=== PATIENT | female | born 1980 | race African-American/Black ===

== ENCOUNTER 2025-04-17 08:30 | Emergency (ER) | payer BC ==
[2025-04-17] MEDS ORDERED: FAMOTIDINE 20 MG/2 ML VIAL IV ONE (08:38)
[2025-04-17] MEDS ORDERED: ASPIRIN 81 MG CHEWABLE TABLET ONE (08:38)
[2025-04-17 09:38] LABS: Absolute Lymphocytes (CBC) 1.4 K/uL (0.7-4.9); Hematocrit 38.1 % (36.0-45.0); Hemoglobin 12.8 g/dL (12.0-15.0); MCH 29.6 pg (27.0-35.0); MCHC 33.7 g/dL (32.0-36.0); MCV 87.9 fL (80-100); MPV 9.6 fL (7.6-11.3); Nucleated RBC Absolute Count 0.0 (0-0); Nucleated Red Blood Cells % 0.1 % (0-0); RBC Red Blood Cell Count 4.33 M/uL (3.86-4.86); White Blood Count 6.40 thou/uL (4.3-10.9)
[2025-04-17 09:45] LABS: ALT/SGPT 17 U/L (13-56); AST/SGOT 12 U/L (15-37); Albumin 3.7 g/dL (3.4-5.0); Albumin/Globulin Ratio 0.9 (1.1-1.8); Alkaline Phosphatase 57 U/L (45-117); Anion Gap 10.7 mEq/L (5.0-15.0); BUN Blood Urea Nitrogen 8 mg/dL (7-18); Bilirubin Indirect, Calculated 0.4 mg/dL (0.2-0.8); Globulin 4.3 g/dL (2.3-3.5); Glucose Level 120 mg/dL (74-106); Lipase 31 U/L (13-75); Potassium 3.7 mEq/L (3.5-5.1)
[2025-04-17 09:50] LABS: Troponin High Sensitivity < 3.0 pg/mL (<58.9)
--- NOTE | 2025-04-17 10:02 | RAD REPORT ---
EXAM: Chest Single View HISTORY: 45 years Female CHEST PAIN COMPARISON: No prior exams FINDINGS: LUNGS/PLEURA: The lungs are clear. No pleural effusions or pneumothorax. No pulmonary edema. CARDIAC/MEDIASTINUM: The cardiac silhouette is within normal limits. UPPER ABDOMEN: No significant abnormality. BONES: No acute abnormality. LINES/TUBES/OTHER: N/A IMPRESSION: No evidence of acute cardiopulmonary disease.
--- NOTE | 2025-04-17 10:15 | EDPHYS ---
Physician Documentation [facility] Name: Kimberly Delvalle Age: 45 yrs Sex: Female : 1980 Arrival Date: 04/17/2025 Time: 08:30 Bed 3 Private MD: ED Physician Isabel García HPI: 04/17 10:15 This 45 yrs old Black Female presents to ER via Ambulatory with complaints of Altered sw6 Mental Status, Abdominal Pain, Chest Pain. 08:35 The patient presents with EMS from her job for evaluation for altered mental status. 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 She was unable to provide any information to EMS prior to arrival due to her altered mental status. However upon arrival to the ER she complained she is having chest pain. She reports the chest pain was so bad this is what caused her to not speak. She reports the chest pain has been present since Friday. Today is Friday morning. She has not taken any medications at home for her symptoms. She denies any change in the pain with exertion or deep breathing. Movement of her arm sometimes makes the pain feel worse. No nausea or vomiting. No fevers or chills. No shortness of breath. No cough or congestion. She denies any history of high blood pressure, diabetes or high cholesterol. She does not smoke. She reports has been seen at [facility] on 2 different occasions for this chest pain and no diagnosis has been found. She has not followed up with her PCP for this. No medication given by EMS. Here for evaluation.. 08:38 The patient presents with decreased responsiveness. Onset: The symptoms/episode sw6 began/occurred just prior to arrival. Possible causes: unknown. Current symptoms: In the emergency department the patient's symptoms have resolved, the patient is alert and fully oriented, has normal speech, has normal responsiveness, has no confusion. Patient's baseline: Neuro: alert and fully oriented, Motor: no deficits, Ambulation: walks without assistance, Speech: normal. The patient has not experienced similar symptoms in the past. 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 - Infectious Disease History:: Denies. - Social history:: Smoking status: Patient denies any tobacco usage or history of. ROS: 08:35 Constitutional: Negative for fever, chills, and weight loss, Respiratory: Negative for sw6 shortness of breath, cough, wheezing, and pleuritic chest pain, Abdomen/GI: Negative for abdominal pain, nausea, vomiting, diarrhea, and constipation, 08:35 Cardiovascular: Positive for chest pain, 08:35 All other systems are negative, Exam: 08:35 Constitutional: This is a well developed, well nourished patient who is awake, alert, sw6 and in no acute distress. Head/Face: Normocephalic, atraumatic. Chest/axilla: Normal chest wall appearance and motion. Nontender with no deformity. No lesions are appreciated. Cardiovascular: Regular rate and rhythm with a normal S1 and S2. No gallops, murmurs, or rubs. Normal PMI, no JVD. No pulse deficits. Respiratory: Lungs have equal breath sounds bilaterally, clear to auscultation and percussion. No rales, rhonchi or wheezes noted. No increased work of breathing, no retractions or nasal flaring. Abdomen/GI: Soft, non-tender, with normal bowel sounds. No distension or tympany. No guarding or rebound. No evidence of tenderness throughout. Back: No spinal tenderness. No costovertebral tenderness. Full range of motion. 08:35 ECG was reviewed by the Attending Physician. Vital Signs: 08:30 BP 139 / 86; Pulse 88; Resp 14 S; Temp 98(O); Pulse Ox 100% on R/A; Pain 8/10; aa5 08:50 Weight 70.31 kg (R); Height 5 ft. 2 in. (R); aa5 09:59 BP 125 / 76; Pulse 78; Resp 16 S; Pulse Ox 100% on R/A; aa5 10:19 BP 124 / 78; Pulse 77; Resp 20; Temp 98.4; Pulse Ox 100% ; me1 08:50 Body Mass Index 28.35 (70.31 kg, 157.48 cm) aa5 08:30 Pain Scale: Adult aa5 MDM: 08:34 Medical Screening Exam initiated sw6 08:35 Differential Diagnosis: ACS, musculoskeletal pain, GERD, gastritis, pancreatitis, peptic ulcer disease. Data reviewed: vital signs, nurses notes, EMS record, EKG. 10:13 Data reviewed: lab test result(s), cardiac enzymes, CBC, electrolytes, radiologic studies, plain films. ED course: The patient is doing well from the ER. She is resting comfortably in the examination room and reports her pain has resolved. Her laboratory studies are unremarkable including a normal high-sensitivity troponin. Her chest x-ray shows no acute cardiopulmonary issues. She remained stable here in the ER and is okay for discharge home with PCP follow-up in 1 week. Recommend she follow-up with a cemetery worker in 1 week.. 04/17 08:35 Order name: Basic Metabolic Panel; Complete Time: 10:01 04/17 10:01 Interpretation: Within normal limits: CRE 0.85. 04/17 08:35 Order name: CBC with Diff; Complete Time: 09:47 04/17 09:47 Interpretation: Within normal limits: WBC 6.40; HGB 12.8; HCT 38.1; PLT 210. 04/17 08:35 Order name: Troponin HS; Complete Time: 10:04/17 10:01 Interpretation: Within normal limits: Troponin HS < 3.0. 04/17 08:35 Order name: Lipase; Complete Time: 10:01 04/17 10:02 Interpretation: Within normal limits: LIP 31. 04/17 08:35 Order name: LFT's; Complete Time: 10:01 04/17 10:01 Interpretation: Within normal limits: ALB 3.7. 04/17 08:35 Order name: XRAY Chest (1 view); Complete Time: 10:13 04/17 10:13 Interpretation: No acute disease. 04/17 08:35 Order name: Cardiac monitoring; Complete Time: 08:36 04/17 08:35 Order name: EKG - Nurse/Tech; Complete Time: 08:36 04/17 08:35 Order name: IV Saline Lock; Complete Time: 08:43 04/17 08:35 Order name: Labs collected and sent; Complete Time: 08:43 04/17 08:35 Order name: O2 Per Protocol; Complete Time: 08:36 sw6 04/17 08:35 Order name: O2 Sat Monitoring; Complete Time: 08:36 sw6 EC:35 Rate is 90 beats/min. Rhythm is regular. QRS [place] is Normal. DC interval is normal. QRS sw6 interval is normal. QT interval is normal. No Q waves. T waves are Normal. No ST changes noted. Clinical impression: Normal ECG. Administered Medications: 08:43 Drug: Aspirin PO Chewable Tablet 324 mg PO once; 81 mg tablets x 4 Route: PO; aa5 10:20 Follow up: Response: No adverse reaction me1 08:43 Drug: Famotidine IVP 20 mg IVP once; dilute with 10 mL 0.9% NaCl; give over 2 minutes aa5 Route: IVP; Site: left antecubital; 08:48 Follow up: Response: No adverse reaction aa5 Disposition Summary: 04/17/25 10:15 Discharge Ordered Notes: Location: Home sw6 Problem: chronic sw6 Symptoms: are resolved sw6 Condition: Stable sw6 Diagnosis - Chest pain, unspecified sw6 Followup: sw6 - With: Maikol Obrien MD - When: 5 - 6 days - Reason: Continuance of care Discharge Instructions: - Discharge Summary Sheet sw6 - Nonspecific Chest Pain, Adult sw6 Forms: - Medication Reconciliation Form sw6 - Antibiotic Education sw6 - Prescription Opioid Use sw6 - Patient Portal Instructions sw6 - Leadership Thank You Letter 6 Signatures: Dispatcher [employer] Joann Myrick RN RN aa5 Isabel García MD MD sw6 Becki Anaya RN me1 Corrections: (The following items were deleted from the chart) 08:35 08:35 BASIC METABOLIC PANEL+C.LAB.BRZ ordered. EDMS EDMS 08:35 08:35 CBC+H.LAB.BRZ ordered. EDMS EDMS 08:35 08:35 Troponin High Sensitivity+C.LAB.BRZ ordered. EDMS EDMS 08:35 08:35 LIPASE+C.LAB.BRZ ordered. EDMS EDMS 08:35 08:35 HEPATIC FUNCTION+C.LAB.BRZ ordered. EDMS EDMS 08:35 08:35 Test, Urine+UC.LAB.BRZ ordered. EDMS EDMS 08:35 08:35 Chest Single View+RAD.RAD.BRZ ordered. EDMS EDMS
--- NOTE | 2025-04-17 10:15 | ER ---
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 Upon scene arrival EMS reports pt was following commands, not speaking, and only moaning. Pt c/o epigastric pain radiating up to chest and reports hx of gastric ulcer. 08:30 Coronavirus screen: At this time, the client does not indicate any symptoms associated aa5 with coronavirus-19. Ebola Screen: Patient denies travel to an Ebola-affected area in the 21 days before illness onset. Initial Sepsis Screen: Does the patient meet any 2 criteria? No. Patient's initial sepsis screen is negative. Does the patient have a suspected source of infection? No. Patient's initial sepsis screen is negative. Risk Assessment: Do you want to hurt yourself or someone else? Patient reports no desire to harm self or others. Onset of symptoms was April 17, 2025. 08:30 Acuity: JOSUE 3 aa5 08:30 [facility] 08[facility]30 Care prior to arrival: Glucose check: 116. 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 - Infectious Disease History:: Denies. - Social history:: Smoking status: Patient denies any tobacco usage or history of. Screenin:30 [facility] ED Fall Risk Assessment (Adult) History of falling in the last 3 months, aa5 including since admission No falls in past 3 months (0 pts) Confusion or Disorientation No (0 pts) Intoxicated or Sedated No (0 pts) Impaired Gait No (0 pts) Mobility Assist Device Used No (0 pt) Altered Elimination No (0 pt) Score/Fall Risk Level 0 - 2 = Low Risk Oriented to surroundings, Maintained a safe environment, Educated pt \T\ family on fall prevention, incl call for assistance when getting out of bed, Assessed \T\ reinforced patient's understanding of fall precautions. Abuse screen: Denies threats or abuse. Nutritional screening: No deficits noted. Tuberculosis screening: No symptoms or risk factors identified. Assessment: 08:30 General: Appears uncomfortable, Behavior is calm, cooperative. Pain: Complains of pain aa5 in epigastric area Pain radiates to mid-sternal area Pain currently is 8 out of 10 on a pain scale. Quality of pain is described as sharp, Pain began Friday and gradually getting worse Is intermittent, Noted to be guarding, quiet/stoic. Neuro: Level of Consciousness is awake, alert, obeys commands, Oriented to person, place, time, situation. Cardiovascular: Heart tones S1 S2 present Edema is absent. Rhythm is sinus rhythm. Respiratory: Airway is patent Respiratory effort is even, unlabored, Respiratory pattern is regular, symmetrical, Breath sounds are clear bilaterally. Denies cough, shortness of breath. GI: Abdomen is round non-distended, Bowel sounds present X 4 quads. Abd is soft X 4 quads Patient currently denies diarrhea, nausea, vomiting. : No signs and/or symptoms were reported regarding the genitourinary system. EENT: No signs and/or symptoms were reported regarding the EENT system. Derm: Skin is dry, Skin is normal, Skin temperature is warm. Musculoskeletal: Range of motion: intact in all extremities. Vital Signs: 08:30 BP 139 / 86; Pulse 88; Resp 14 S; Temp 98(O); Pulse Ox 100% on R/A; Pain 8/10; aa5 08:50 Weight 70.31 kg (R); Height 5 ft. 2 in. (R); aa5 09:59 BP 125 / 76; Pulse 78; Resp 16 S; Pulse Ox 100% on R/A; aa5 10:19 BP 124 / 78; Pulse 77; Resp 20; Temp 98.4; Pulse Ox 100% ; me1 08:50 Body Mass Index 28.35 (70.31 kg, 157.48 cm) aa5 08:30 Pain Scale: Adult aa5 ED Course: 08:30 Arm band placed on Patient placed in an exam room, on a stretcher. aa5 08:30 Patient has correct armband on for positive identification. Placed in gown. Bed in low aa5 position. Call light in reach. Side rails up X2. Client placed on continuous cardiac and pulse oximetry monitoring. NIBP monitoring applied. property assessment monitor on. Pulse ox on. NIBP on. 08:33 Patient arrived in ED. jl7 08:34 Isabel García MD is Attending Physician. sw6 08:37 EKG done, by ED staff, reviewed by Isabel García MD. aa5 08:40 Initial lab(s) drawn, by ED staff, sent to lab. Inserted saline lock: 20 gauge in left aa5 antecubital area, using aseptic technique. Blood collected. Flushed with 10 mL NS. 08:43 Joann Mendez, RN is Primary Nurse. aa5 08:46 Triage completed. aa5 08:53 No provider procedures requiring assistance completed. aa5 09:54 XRAY Chest (1 view) In Process Unspecified. EDCA 10:14 Maikol Obrien MD is Referral Physician. sw6 10:48 Provided Education on: follow up instructions, verbalized understanding.. me1 10:48 IV discontinued, intact, bleeding controlled, No redness/swelling at site. Pressure me1 dressing applied. Administered Medications: 08:43 Drug: Aspirin PO Chewable Tablet 324 mg PO once; 81 mg tablets x 4 Route: PO; aa5 10:20 Follow up: Response: No adverse reaction me1 08:43 Drug: Famotidine IVP 20 mg IVP once; dilute with 10 mL 0.9% NaCl; give over 2 minutes aa5 Route: IVP; Site: left antecubital; 08:48 Follow up: Response: No adverse reaction aa5 Medication: 08:49 VIS not applicable for this client. aa5 Outcome: 10:15 Discharge ordered by . sw6 10:48 Discharged to home via wheelchair, with friend, me1 10:48 Condition: stable 10:48 Discharge instructions given to patient, Instructed on discharge instructions, follow up and referral plans. Demonstrated understanding of instructions, follow-up care, 10:48 Patient left the ED. me1 Signatures: Dispatcher [employer] [facility] Joann Mendez, THUY RN aa5 Sierra Rg RN RN 7 Becki Anaya RN RN me1 Isabel García, MD sw6
[2025-04-17 11:27] VITALS: O2SAT 100
[2025-04-17 11:29] VITALS: BP 124/78; TEMP 98.4
== END 2025-04-17 10:48 | disposition home or self-care (01) ==
LOC: ER 08:30
DX: R07.9 Chest pain, unspecified (principal); R41.82 Altered mental status, unspecified
CPT/HCPCS: 36415; 71045; 80048; 80076; 83690; 84484; 85025; 93005; 96374; 99285